=== PATIENT | female | born 1990 | race Caucasian/White ===

== ENCOUNTER 2019-10-01 17:59 | Emergency (ER) | payer BC, SELFPAY ==
--- NOTE | ~2019-10-01 | XR_ITS ---
EXAMINATION: XR ankle RT min 3V, XR foot RT min 3V DATE: 10/01/2019 19:11 INDICATION: Right foot and ankle pain post falling fridge TECHNIQUE: 1. Anteroposterior, mortise, additional oblique and lateral view of the right ankle were obtained. 2. Dorsoplantar, two oblique and lateral views of the right foot were obtained. COMPARISON: Right foot radiographs dated 04/23/2008 FINDINGS: Alignment of the foot and ankle is normal. Asymmetric lateral side predominant shortening of the righ t first proximal phalanx which could be developmental or sequela of old trauma or surgery. No acute f racture or osteochondral lesion. Moderate sized Achilles calcaneal spur and tiny plantar calcaneal sp ur. Joint spaces are well maintained. No ankle joint effusion. The soft tissues are unremarkable. IMPRESSION: 1. No acute osseous abnormality at the right foot or ankle. Reviewed, dictated and finalized at location A. OGY NURSE IMPRESSION: 1. No acute osseous abnormality at the right foot or ankle.
--- NOTE | ~2019-10-01 | XR_ITS ---
EXAMINATION: XR ankle LT min 3V, XR foot LT min 3V DATE: 10/01/2019 19:10 INDICATION: Left foot and ankle pain post falling fridge TECHNIQUE: 1. Anteroposterior, mortise, additional oblique and lateral view of the left ankle were obtained. 2. Dorsoplantar, two oblique and lateral views of the left foot were obtained. COMPARISON: None. FINDINGS: Alignment of the foot and ankle is normal. No fracture or osteochondral lesion. Joint spaces are well maintained. Small Achilles and plantar calcaneal spurs. No ankle joint effusion. The soft tissues ar e unremarkable. IMPRESSION: 1. No acute osseous abnormality the left foot or ankle. Reviewed, dictated and finalized at location A. AL NUTRITIONIST IMPRESSION: 1. No acute osseous abnormality the left foot or ankle.
[2019-10-01 18:18] VITALS: BP 152/101; PULSE 83; RESP 20; TEMP 36.6; O2SAT 99
--- NOTE | 2019-10-01 19:37 | ED.LOWEXIN ---
HPI - Extremity Injury (Lower) General Chief Complaint: Extremity Injury, Lower Stated Complaint: hurt both legs Source: patient Mode of arrival: ambulatory Limitations: no limitations History of Present Illness HPI Narrative: Patient is a 29-year-old female presents with foot and ankle pain bilaterally after she was helping a friend move from the refrigerator that landed on her up bilateral feet and ankles causing pain inflammation that occurred earlier today at around 3:00 a.m. this afternoon, the patient has been taking ibuprofen. There is some minimal swelling with no bruising or contusions. complaint: ankle injury and foot injury Onset (ago): hour(s) Injury: Left: foot and Right: ankle Type of Injury: blunt Severity: mild Severity scale (1-10): 5 Relieving factors: NSAID Exacerbating factors: weight bearing and movement Context: direct blow Associated symptoms: swelling and numbness Other symptoms: none Related Data Home Medications Medication Instructions Recorded Confirmed norgestimate-ethinyl estradiol 1 tablet PO DAILY 07/23/19 07/23/19 [[place]-Linyah] topiramate 50 mg PO HS 07/23/19 07/23/19 Allergies Allergy/AdvReac Type Severity Reaction Status Date / Time codeine Allergy Rash Verified 07/23/19 18:23 hydrocodone [From Vicodin] Allergy Rash Verified 07/23/19 18:24 Review of Systems Review of Systems: All systems reviewed & are unremarkable except as noted in HPI and below PMFSH Past Medical History Medical History Ovarian cyst Seizures Surgical History Surgical History History of tonsillectomy and adenoidectomy Social History Social History Smoking status: Current every day smoker Alcohol intake: current Substance use: never Exam Const: General: no acute distress and alert Nutritional Appearance: well nourished and obese Orientation/consciousness: patient oriented x3 HENMT: Head: normal to inspection Eyes: Conjunctivae: conjunctivae normal Pupils: Equal, round and reactive pupils present Neck: Neck: normal visual inspection Chest: Chest palpation & inspection: normal inspection of the chest Resp: Effort & Inspection: normal respiratory effort Cardio: Rate: regular rate Rhythm: regular rhythm GI: GI Palp: Yes Soft to palpation : General: Yes no CVA tenderness Neuro: General: patient oriented x3 and moves all extremities Extrem: General: normal to inspection Other: Point tenderness bilaterally anterior feet and ankles with no contusions or bruising with minimal swelling. Critical Care Time Critical Care Time Critical Care Time: No Discharge Plan Discharge Clinical Impression: Ankle sprain and strain Foot sprain Qualifiers: Encounter type: initial encounter Laterality: unspecified laterality Qualified Code(s): S93.609A - Unspecified sprain of unspecified foot, initial encounter Patient Disposition: Home, Self-Care Condition: Stable Instructions: Antibiotic Form Additional Instructions: Advised patient to use ice to affected feet and ankles, ibuprofen 600 mg twice daily with meals x1 week, follow-up with primary care physician if symptoms persist or worsen. Prescriptions: No Action amoxicillin-pot clavulanate 875-125 mg tablet 1 tablet PO Q12H Qty: 20 RF: 0 norgestimate-ethinyl estradiol [[place]-Linyah] 0.25-35 mg-mcg tablet 1 tablet PO DAILY RF: 0 topiramate 50 mg tablet 50 mg PO HS RF: 0 Follow-up/Referrals: Angela,MUKESH Falcon [Primary Care Provider] - Time of Disposition: 19:40
[2019-10-01 19:53] VITALS: RESP 20
== END 2019-10-01 19:54 | disposition home or self-care (01) ==
PROVIDERS: Emergency Provider Emergency Medicine; PCP Physician Assistant
DX: S93.402A Sprain of unspecified ligament of left ankle, initial encounter (principal); S93.401A Sprain of unspecified ligament of right ankle, initial encounter
CPT/HCPCS: 73610; 73630; 99282; 99284

== ENCOUNTER 2019-10-19 19:08 | Emergency (ER) | payer BC, SELFPAY ==
[2019-10-19 19:15] VITALS: BP 127/72; PULSE 72; RESP 20; TEMP 36.8; O2SAT 98
--- NOTE | 2019-10-19 19:44 | ED.URI ---
HPI - URI/Sore Throat General Chief Complaint: Upper Respiratory Infection Stated Complaint: throat pain,cough, hard to breath Time Seen by Provider: 10/19/19 19:30 Source: patient Mode of arrival: ambulatory Limitations: no limitations History of Present Illness HPI Narrative: Jil is a 29-year-old female patient. She states that she has been sick for the past couple of days. She has a sore throat cough and congestion. Her chest hurts when she coughs. She has some white sputum production along with the cough. She is afebrile in the ER with a temperature of 98.2? F. no abdominal pain. No vomiting or diarrhea. MD elicited complaint: cough, sore throat and nasal congestion Onset (ago): day(s) ( Two days) Consistency: intermittent Severity: moderate Description of mucous: clear and yellow Able to tolerate fluids by mouth: Yes Exacerbating factors: swallowing Relieving factors: nothing Context: other ( no recent travel. Her nephew had strep throat and flu.) Associated symptoms: cough and other ( No chills or fever) Treatments prior to arrival: acetaminophen Related Data Home Medications Medication Instructions Recorded Confirmed norgestimate-ethinyl estradiol 1 tablet PO DAILY 07/23/19 10/19/19 [[place]-Linyah] topiramate 50 mg PO HS 07/23/19 10/19/19 Allergies Allergy/AdvReac Type Severity Reaction Status Date / Time codeine Allergy Rash Verified 07/23/19 18:23 hydrocodone [From Vicodin] Allergy Rash Verified 07/23/19 18:24 Review of Systems Review of Systems: All systems reviewed & are unremarkable except as noted in HPI and below Constitutional: Constitutional: Reports no additional constitutional complaints, Denies chills and Denies fever(s) Eyes: Eyes: Reports no additional eye complaints and Denies change in vision ENT: Reports system reviewed and no additional complaints, except as documented, Reports nasal congestion and Reports sore throat Cardiovascular: Cardiovascular: Reports no additional cardiovascular complaints, Denies chest pain and Denies radiating jaw, neck or arm pain Respiratory: Respiratory: Reports as per HPI, Reports no additional respiratory complaints and Reports cough Gastrointestinal: Gastrointestinal: Reports as per HPI, Denies abdominal pain, Denies diarrhea, Denies nausea and Denies vomiting Genitourinary: Genitourinary: Reports no additional female genitourinary complaints, Denies hematuria and Denies dysuria Musculoskeletal: Musculoskeletal: Reports no additional musculoskeletal complaints and Denies back pain Integumentary/Breasts: Skin/Breast: Reports system reviewed and no additional complaints, except as docu, Denies erythema and Denies rash Neurologic: Reports system reviewed and no additional complaints, except as documented, Denies dizziness, Denies syncope, Denies headache(s) and Denies focal weakness Psychiatric: Psychiatric: Reports no additional psychiatric complaints PMFSH Past Medical History Medical History Ovarian cyst Seizures Surgical History Surgical History History of tonsillectomy and adenoidectomy Social History Social History Smoking status: Current every day smoker Alcohol intake: current Substance use: never Exam Const: General: no acute distress ( mild distress) and alert; No diaphoretic Orientation/consciousness: patient oriented x3 Limitations: no limitations HENMT: Ears: TM's normal bilaterally and EAC's normal Other: nasal congestion but no discharge. Pharynx is mildly reddened. Eyes: Conjunctivae: conjunctivae normal Pupils: Equal, round and reactive pupils present EOM: EOMs intact bilaterally Neck: Neck: normal visual inspection and no lymphadenopathy Resp: Effort & Inspection: normal respiratory effort Auscultation: rhonchi ( A few rhonchi
[2019-10-19 19:45] LABS: Influenza Control Valid (Valid)
== END 2019-10-19 20:03 | disposition home or self-care (01) ==
PROVIDERS: Emergency Provider Surgery; PCP Physician Assistant
DX: J40 Bronchitis, not specified as acute or chronic (principal); F17.200 Nicotine dependence, unspecified, uncomplicated
CPT/HCPCS: 87081; 87804; 87880; 99283; A9270

== ENCOUNTER 2020-03-03 19:22 | Emergency (ER) | payer BC, SELFPAY ==
--- NOTE | ~2020-03-03 | XR_ITS ---
XR_[id number]_CR 03/03/2020 20:16 Indication: Neck pain Procedure: 5 views of the cervical spine Comparison: No prior studies for comparison. Findings: No fracture, subluxation or dislocation. No prevertebral soft tissue abnormality. Odontoid process within normal limits. Visualized lung parenchyma is unremarkable. Impression: 1: No acute abnormality of the cervical spine. Reviewed, dictated and finalized at location A. Impression: 1: No acute abnormality of the cervical spine.
[2020-03-03 19:40] VITALS: BP 130/96; PULSE 85; RESP 15; TEMP 36.4; O2SAT 98
--- NOTE | 2020-03-03 19:56 | ED.BACK ---
HPI - Back Pain/Injury General Chief Complaint: Back Pain/Injury Stated Complaint: neck,back, shoulder pain Source: patient Mode of arrival: ambulatory Limitations: no limitations History of Present Illness HPI Narrative: this is a 29-year-old female that presents with some neck pain that started earlier this morning there was no known injury, there is limited range of motion secondary to pain and tenderness in the left posterior cervical area with palpation with no fever chills no nausea vomiting currently no headaches no blurry vision. MD elicited complaint: other ( Neck pain) Onset (ago): hour(s) Severity: moderate Pain scale (0-10): 9 Similar Symptoms Previously: Yes Quality: sharp and dull Exacerbating factors: movement Relieving factors: immobilization Context: turning/twisting Related Data Home Medications Medication Instructions Recorded Confirmed norgestimate-ethinyl estradiol 1 tablet PO DAILY 07/23/19 03/03/20 [[place]-Linyah] topiramate 50 mg PO HS 07/23/19 03/03/20 Allergies Allergy/AdvReac Type Severity Reaction Status Date / Time codeine Allergy Rash Verified 07/23/19 18:23 hydrocodone [From Vicodin] Allergy Rash Verified 07/23/19 18:24 Review of Systems Review of Systems: All systems reviewed & are unremarkable except as noted in HPI and below PMFSH Past Medical History Medical History Ovarian cyst Seizures Surgical History Surgical History History of tonsillectomy and adenoidectomy Social History Social History Smoking status: Current every day smoker Alcohol intake: current Substance use: never Exam Const: General: no acute distress and alert Orientation/consciousness: patient oriented x3 HENMT: Head: normal to inspection Eyes: Conjunctivae: conjunctivae normal Pupils: Equal, round and reactive pupils present EOM: EOMs intact bilaterally Neck: Neck: normal visual inspection, no lymphadenopathy and no meningeal signs Chest: Chest palpation & inspection: normal inspection of the chest Resp: Effort & Inspection: normal respiratory effort Auscultation: clear to auscultation bilaterally Cardio: Rate: regular rate Rhythm: regular rhythm GI: Auscultation: normal bowel sounds : General: Yes no CVA tenderness Skin: General skin exam: normal color Rashes: no rashes Extrem: Other: neck pain left posterior neck with palpation and reduced range of motion secondary to pain, there is no numbness or tingling no radiation into her shoulders arms or fingers Psych: Appearance: grossly normal Mental Status: mental status grossly normal Affect: normal affect Course Course Emergency Course: reassessment of patient after she received Toradol does state that her pain is mildly improved, advised to use pain medicine as prescribed and warm compress and a follow-up with primary care physician if symptoms persist. Vital Signs Vital signs: Vital Signs Temperature 36.4 C L 03/03/20 19:40 Pulse Rate 85 03/03/20 19:40 Respiratory Rate 15 03/03/20 19:40 Blood Pressure 130/96 H 03/03/20 19:40 Pulse Oximetry 98 03/03/20 19:40 Temperature 36.4 C L 03/03/20 19:40 Pulse Rate 85 03/03/20 19:40 Respiratory Rate 15 03/03/20 19:40 Blood Pressure 130/96 H 03/03/20 19:40 Pulse Oximetry 98 03/03/20 19:40 Critical Care Time Critical Care Time Critical Care Time: No Discharge Plan Discharge Clinical Impression: Cervical strain Qualifiers: Encounter type: initial encounter Qualified Code(s): S16.1XXA - Strain of muscle, fascia and tendon at neck level, initial encounter Patient Disposition: Home, Self-Care Condition: Stable Instructions: Antibiotic Form, Cervical Strain (DC) Additional Instructions: take medicine as prescribed and follow-up primary care physician if symptom
[2020-03-03] MEDS: KETOROLAC (*BKC) 60 MG/2 ML VIAL IM (20:10)
[2020-03-03 20:31] VITALS: RESP 16; O2SAT 100
== END 2020-03-03 20:33 | disposition home or self-care (01) ==
PROVIDERS: Emergency Provider Emergency Medicine; PCP Physician Assistant
DX: S16.1XXA Strain of muscle, fascia and tendon at neck level, initial encounter (principal)
CPT/HCPCS: 72040; 96372; 99283; J1885

== ENCOUNTER 2020-04-15 19:00 | Emergency (ER) | payer BC, SELFPAY ==
--- NOTE | 2020-04-15 19:24 | ED.ALLEREA ---
HPI - Allergic Reaction General Chief complaint: Skin/Abscess/Foreign Body Stated complaint: 29 yo female w/ 3-4 day h.o left leg rash associated with hives, itching after a insect sting. Here for eval. Related Data Home Medications Medication Instructions Recorded Confirmed norgestimate-ethinyl estradiol 1 tablet PO DAILY 07/23/19 03/03/20 [[place]-Linyah] topiramate 50 mg PO HS 07/23/19 03/03/20 Allergies Allergy/AdvReac Type Severity Reaction Status Date / Time codeine Allergy Rash Verified 07/23/19 18:23 hydrocodone [From Vicodin] Allergy Rash Verified 07/23/19 18:24 Review of Systems Review of Systems: All systems reviewed & are unremarkable except as noted in HPI and below Constitutional: Constitutional: Reports as per HPI, Denies chills, Denies fatigue, Denies fever(s) and Denies weakness ENT: Reports system reviewed and no additional complaints, except as documented Cardiovascular: Cardiovascular: Reports as per HPI and Reports no additional cardiovascular complaints Respiratory: Respiratory: Reports as per HPI and Reports no additional respiratory complaints Gastrointestinal: Gastrointestinal: Reports no additional gastrointestinal complaints Genitourinary: Genitourinary: Reports no additional female genitourinary complaints Musculoskeletal: Musculoskeletal: Reports no additional musculoskeletal complaints Integumentary/Breasts: Skin/Breast: Reports pruritus and Reports rash (left leg rash) Neurologic: Reports system reviewed and no additional complaints, except as documented Psychiatric: Psychiatric: Reports no additional psychiatric complaints [facility], [facility] Past Medical History Medical History Ovarian cyst Seizures Surgical History Surgical History History of tonsillectomy and adenoidectomy Social History Social History Smoking status: Current every day smoker Alcohol intake: current Substance use: never Exam Const: General: no acute distress Orientation/consciousness: patient oriented x3 HENMT: Head: normal to inspection Chest: Chest palpation & inspection: normal inspection of the chest Resp: Effort & Inspection: normal respiratory effort Auscultation: clear to auscultation bilaterally Cardio: Rate: regular rate Rhythm: regular rhythm Skin: Other: Left leg hives w/ excoriations and mild erythema. Negative homans sign b/l LE. Neuro: General: patient oriented x3, moves all extremities and no focal motor deficits Psych: Affect: normal affect Attitude: cooperative MDM - Allergic Reaction MDM Narrative Medical decision making narrative: Home on Topical steroids Differential Diagnosis Differential diagnosis: Likely allergic reaction, contact dermatitis and urticaria; Unlikely anaphylaxis and angioedema Medical Records Attestation: I reviewed the patient's medical records. Critical Care Time Critical Care Time Critical Care Time: No Discharge Plan Discharge Clinical Impression: Insect bites Qualifiers: Encounter type: initial encounter Site of insect bite: lower leg Laterality: left Qualified Code(s): S80.862A - Insect bite (nonvenomous), left lower leg, initial encounter Contact dermatitis Qualifiers: Contact dermatitis type: allergic Contact dermatitis trigger: unspecified trigger Qualified Code(s): L23.9 - Allergic contact dermatitis, unspecified cause Patient Disposition: Home, Self-Care Condition: Stable Instructions: Antibiotic Form, Contact Dermatitis (ED), Insect Bite or Sting (ED) Additional Instructions: F/U with PMD in 3-5 days Prescriptions: New mometasone 0.1 % ointment 1 applic TOPICAL DAILY 7 Days Qty: 50 RF: 0 No Action norgestimate-ethinyl estradiol [[place]-Linyah] 0.25-35 mg-mcg tablet 1 tablet PO DAILY RF: 0 topiramate 50 mg tablet 50 mg PO HS RF
[2020-04-15 19:30] VITALS: BP 155/99; PULSE 85; RESP 18; TEMP 36.6; O2SAT 98
== END 2020-04-15 19:37 | disposition home or self-care (01) ==
PROVIDERS: Emergency Provider Family Medicine; PCP Physician Assistant
DX: S80.862A Insect bite (nonvenomous), left lower leg, initial encounter (principal); L23.9 Allergic contact dermatitis, unspecified cause
CPT/HCPCS: 99283

== ENCOUNTER 2020-07-13 14:10 | Outpatient (CLI) | payer BC, SELFPAY ==
[2020-07-14 14:04] LABS: SARS-CoV-2 RNA PCR Negative
== END 2020-07-13 14:11 | disposition home or self-care (01) ==
LOC: CHSLAB 14:15
PROVIDERS: PCP Physician Assistant; Visit Provider Physician Assistant
DX: Z20.828 Contact with and (suspected) exposure to other viral communicable diseases (principal)
CPT/HCPCS: 87635; C9803; U0003

== ENCOUNTER 2020-11-14 04:54 | Emergency (ER) | payer BC, SELFPAY ==
--- NOTE | ~2020-11-14 | XR_ITS ---
XR wrist LT 2V 11/14/2020 06:02 INDICATION: Left wrist pain after fall PROCEDURE: 3 views left wrist COMPARISON: No prior studies for comparison. FINDINGS: Fracture, dislocation or subluxation is not identified. The soft tissues appear within norm al limits. No foreign bodies are identified. IMPRESSION: 1: NO ACUTE BONE OR JOINT ABNORMALITY IDENTIFIED. Reviewed, dictated and finalized at location A.
--- NOTE | ~2020-11-14 | XR_ITS ---
XR knee RT 2V 11/14/2020 06:02 INDICATION: Right ankle the PROCEDURE: 4 views right knee COMPARISON: No prior studies for comparison. FINDINGS: Fracture, dislocation or subluxation is not identified. Healed proximal tibial and fibular fractures. No significant joint effusion. The soft tissues appear within normal limits. No foreign b odies are identified. IMPRESSION: 1: NO ACUTE BONE OR JOINT ABNORMALITY IDENTIFIED. Reviewed, dictated and finalized at location A.
[2020-11-14 05:19] VITALS: BP 143/91; PULSE 82; RESP 16; TEMP 36.6; O2SAT 98
--- NOTE | 2020-11-14 05:29 | PC.NURSE ---
0518-Ice pack applied to left wrist and right knee.
--- NOTE | 2020-11-14 05:34 | PC.NURSE ---
[place] pt took motrin 600mg
--- NOTE | 2020-11-14 06:08 | PC.NURSE ---
0608- Patient is resting with pillow under right knee.
--- NOTE | 2020-11-14 06:20 | ED.FALL ---
HPI - Fall General Chief Complaint: Fall Stated Complaint: Fall Source: patient and RN notes reviewed Mode of arrival: ambulatory Limitations: no limitations History of Present Illness HPI Narrative: Patient was walking her dog when the dog saw a cat and took off running. The large dog jerked on the leash and patient fell onto the gravel. She complains of pain in left wrist and right knee. She has some abrasion present on the right knee. complaint: fall Onset (ago): minute(s) (20) Fall from: standing Fall witnessed: no Place fall occurred: street Loss of consciousness: none Prolonged down time: no Symptoms prior to fall: none Context: tripped/slipped Location of injury - extremities: Right: knee and Bilateral: hand (left wrist) Severity: moderate Quality: dull and aching Associated symptoms (after fall): denies Related Data Home Medications Medication Instructions Recorded Confirmed topiramate 50 mg PO HS 07/23/19 11/14/20 Allergies Allergy/AdvReac Type Severity Reaction Status Date / Time codeine Allergy Rash Verified 07/23/19 18:23 hydrocodone [From Vicodin] Allergy Rash Verified 07/23/19 18:24 Review of Systems Review of Systems: All systems reviewed & are unremarkable except as noted in HPI and below PMFSH Past Medical History Medical History (Updated 11/14/20 @ 06:24 by Nicho Ponce MD) Ovarian cyst Seizures Surgical History Surgical History History of tonsillectomy and adenoidectomy Social History Social History Smoking status: Current every day smoker Alcohol intake: current Substance use: never Exam Const: General: healthy appearing and no acute distress Nutritional Appearance: well nourished and obese morbidly obese Orientation/consciousness: patient oriented x3 HENMT: Head: normal to inspection Ears: external ears normal Eyes: Conjunctivae: conjunctivae normal Pupils: Equal, round and reactive pupils present EOM: EOMs intact bilaterally Neck: Neck: normal visual inspection Resp: Effort & Inspection: normal respiratory effort Auscultation: clear to auscultation bilaterally Cardio: Rate: regular rate Rhythm: regular rhythm GI: GI Palp: Yes Soft to palpation and No Tenderness to palpation present (GI) Auscultation: normal bowel sounds Back/Spine/Pelvis: Cervical Spine: cervical ROM normal Thoracic/Lumbar Spine: thoraco-lumbar ROM normal Skin: General skin exam: normal color Rashes: no rashes Wounds: wounds noted Neuro: General: patient oriented x3, moves all extremities and no focal motor deficits Speech: normal speech Gait exam (Neuro): Normal gait present ( mild limp on the right) Extrem: General: normal exam except as noted Left upper extremity: wrist tenderness of the distal radius and of the distal ulna and hand tenderness of the palm ( proximal) Right lower extremity: knee Details: tenderness ( minor abrasions on the infrapatellar area.) Location: of the tibial tuberosity, of the medial joint line, of the lateral joint line and of the infrapatellar area Psych: Appearance: grossly normal and well kempt Mental Status: mental status grossly normal Affect: normal affect Attitude: cooperative Thought content: Yes Normal thought content present Course Vital Signs Vital signs: Vital Signs Temperature 36.6 C 11/14/20 05:19 Pulse Rate 82 11/14/20 05:19 Respiratory Rate 16 11/14/20 05:19 Blood Pressure 143/91 H 11/14/20 05:19 Pulse Oximetry 98 11/14/20 05:19 Temperature 36.6 C 11/14/20 05:19 Pulse Rate 82 11/14/20 05:19 Respiratory Rate 16 11/14/20 05:19 Blood Pressure 143/91 H 11/14/20 05:19 Pulse Oximetry 98 11/14/20 05:19 MDM - Fall Imaging Data Radiologist's impression: X-ray of the right knee and left wrist oral negative Discharge Plan Discharge Clinical Impression: Contusion of right knee,
--- NOTE | 2020-11-14 06:21 | PC.NURSE ---
0621-Applied neosporin to right and left knee, and covered with large bandaid.
[2020-11-14] MEDS: NEOMYCIN/POLYMYXIN/BACITRACIN OINTMENT PACKET 1 PACKET TOPICAL (06:24)
[2020-11-14 06:26] VITALS: BP 146/87; PULSE 84; RESP 20; TEMP 36.6; O2SAT 97
== END 2020-11-14 06:30 | disposition home or self-care (01) ==
PROVIDERS: Emergency Provider Emergency Medicine; PCP Physician Assistant
DX: S80.01XA Contusion of right knee, initial encounter (principal); W19.XXXA Unspecified fall, initial encounter
CPT/HCPCS: 73100; 73560; 99282; 99284

== ENCOUNTER 2021-04-19 20:08 | Emergency (ER) | payer BC, SELFPAY ==
[2021-04-19 20:30] VITALS: BP 132/89; PULSE 89; RESP 20; TEMP 37; O2SAT 99
--- NOTE | 2021-04-19 20:57 | ED.ALLEREA ---
HPI - Allergic Reaction General Chief complaint: Skin/Abscess/Foreign Body Stated complaint: bug bite Source: patient Mode of arrival: ambulatory Limitations: no limitations History of Present Illness HPI narrative: Pt came to ed bc she noted that her three middle toes on her right foot were swollen and tender. SHe used hydrocortisone cream, and topical benadryl but it didnt help. She has no fevers chills, and no known injury. Onset (ago): day(s) (today) Exposure: unknown Symptoms: rash and itching Severity: mild Treatment prior to arrival: benadryl and topical medicine Previous Allergic Reaction History: none Related Data Home Medications Medication Instructions Recorded Confirmed topiramate 50 mg PO HS 07/23/19 04/19/21 Allergies Allergy/AdvReac Type Severity Reaction Status Date / Time codeine Allergy Rash Verified 07/23/19 18:23 hydrocodone [From Vicodin] Allergy Rash Verified 07/23/19 18:24 Review of Systems Constitutional: Constitutional: Reports no additional constitutional complaints Eyes: Eyes: Reports no additional eye complaints ENT: Reports system reviewed and no additional complaints, except as documented Cardiovascular: Cardiovascular: Reports no additional cardiovascular complaints Respiratory: Respiratory: Reports no additional respiratory complaints Gastrointestinal: Gastrointestinal: Reports no additional gastrointestinal complaints Genitourinary: Genitourinary: Reports no additional female genitourinary complaints Musculoskeletal: Musculoskeletal: Reports no additional musculoskeletal complaints Integumentary/Breasts: Skin/Breast: Reports system reviewed and no additional complaints, except as docu Neurologic: Reports system reviewed and no additional complaints, except as documented Psychiatric: Psychiatric: Reports no additional psychiatric complaints Endocrine: Endocrine: Reports no additional endocrine complaints Hematologic/Lymphatic: Hematologic/Lymphatic: Reports no additional hematologic/lymphatic complaints Allergic/Immunologic: Allergic/Immunologic: Reports no additional allergic/immunologic complaints [facility] Past Medical History Medical History (Updated 04/19/21 @ 21:04 by Krystyna Waite MD) Ovarian cyst Seizures Surgical History Surgical History History of tonsillectomy and adenoidectomy Social History Social History Smoking status: Current every day smoker Alcohol intake: current Substance use: never Exam Const: General: no acute distress and alert Nutritional Appearance: well nourished Orientation/consciousness: patient oriented x3 HENMT: Head: normal to inspection Neck: Neck: normal visual inspection Resp: Effort & Inspection: normal respiratory effort Auscultation: clear to auscultation bilaterally Cardio: Rate: regular rate Rhythm: regular rhythm GI: GI Palp: Yes Soft to palpation, No Tenderness to palpation present (GI) and No Guarding due to palpation present (GI) Auscultation: normal bowel sounds Skin: General skin exam: normal color Other: middle three toes on r foot were slightly swollen with light red discoloration. toes were tender to touch as well. redness is mild and blanchable. It appears to be allergic type response Neuro: General: patient oriented x3 Extrem: General: normal to inspection Psych: Appearance: grossly normal Affect: normal affect Thought content: Yes Normal thought content present Course Vital Signs Vital signs: Vital Signs Temperature 37.0 C 04/19/21 20:30 Pulse Rate 89 04/19/21 20:30 Respiratory Rate 20 04/19/21 20:30 Blood Pressure 132/89 04/19/21 20:30 Pulse Oximetry 99 04/19/21 20:30 Temperature 37.0 C 04/19/21 20:30 Pulse Rate 89 04/19/21 20:30 Respiratory Rate 20 04/19/21 20:30 Blood Pressure 132/89 04/19/21 20:30 Pulse Oximetry
[2021-04-19] MEDS: DEXAMETHASONE SOD PHOS INJ 4 MG/ML VIAL 10 MG IM (21:08)
[2021-04-19 21:22] VITALS: BP 124/93; PULSE 72; RESP 18; TEMP 36.6; O2SAT 97
== END 2021-04-19 21:25 | disposition home or self-care (01) ==
PROVIDERS: Emergency Provider Emergency Medicine; PCP Physician Assistant
DX: T78.40XA Allergy, unspecified, initial encounter (principal)
CPT/HCPCS: 96372; 99283; J1100

== ENCOUNTER 2021-04-23 12:06 | Emergency (ER) | payer BC, SELFPAY ==
--- NOTE | ~2021-04-23 | CT_ITS ---
EXAMINATION: CT brain wo con DATE: 04/23/2021 13:02 INDICATION: Headache and nausea TECHNIQUE: Computed tomography (CT) of the head was performed without intravenous contrast. Sagittal and coronal reconstructions were performed. The mA was adjusted according to patient size. Iterative reconstruction technique was employed. The dose-length product was 605.33 mGy-cm. COMPARISON: head CT dated 03/27/2017 FINDINGS: Decrease in size of a now approximately 3 mm more subtle density at the left temporal lobe with the i nterval stability favoring small amount of dystrophic calcification. No acute intracranial hemorrhage , acute infarction or abnormal extra axial fluid collection. Ventricles are normal and symmetric. Bas al cisterns are patent. No mass/mass effect. Mucosal thickening in the left maxillary and sphenoid si nuses. The orbits and mastoid air cells are normal. IMPRESSION: 1. No acute intracranial process. 2. Slight decrease in size of a small focus of increased attenuation at the left temporal lobe which given the 2 years of stability favors a benign etiology, most likely dystrophic calcification. Reviewed, dictated and finalized at location A. IMPRESSION: 1. No acute intracranial process. 2. Slight decrease in size of a small focus of increased attenuation at the lef t temporal lobe which given the 2 years of stability favors a benign etiology, most likely dystrophic calcification.
[2021-04-23 12:20] VITALS: BP 128/83; PULSE 75; RESP 20; TEMP 36.4; O2SAT 95
--- NOTE | 2021-04-23 12:39 | ED.HA ---
HPI - Headache General Chief Complaint: Skin/Abscess/Foreign Body Stated Complaint: right leg pain Time Seen by Provider: 04/23/21 12:40 Source: patient Mode of arrival: ambulatory Limitations: no limitations History of Present Illness HPI Narrative: 30-year-old woman comes in today complaining of right lower leg pain that started 2 days ago she states that she was stung on the posterior lower right leg by a wasp which got stuck to her and she had to pull off. She states she has been taking Benadryl and ibuprofen but the pain is increasing and is worse at the lowest 3rd between her ankle and knee. She states the pain radiates up to her posterior knee and is worse with ambulation. Patient states that she woke this morning with a severe headache and nausea that is different than her typical migraine. She has had no recent head injury. She denies fever, cough or cold symptoms, shortness of breath, cough, vomiting, diarrhea, abdominal pain, dysuria, and sick exposures. She states she takes at anticonvulsive medication every day for seizures she had in the past. MD elicited complaint: headache Pertinent past history: migraines Onset (ago): hour(s) Onset description: on awakening Location: diffuse Severity: severe Exacerbating factors: none Relieving factors: nothing Associated symptoms: nausea Treatments prior to arrival: none Related Data Home Medications Medication Instructions Recorded Confirmed topiramate 50 mg PO HS 07/23/19 04/23/21 Allergies Allergy/AdvReac Type Severity Reaction Status Date / Time codeine Allergy Rash Verified 07/23/19 18:23 hydrocodone [From Vicodin] Allergy Rash Verified 07/23/19 18:24 Review of Systems Review of Systems: All systems reviewed & are unremarkable except as noted in HPI and below Constitutional: Constitutional: Denies chills and Denies fever(s) Eyes: Eyes: Denies change in vision and Denies photophobia ENT: Denies dysphagia, Denies nasal congestion and Denies sore throat Cardiovascular: Cardiovascular: Denies chest pain and Denies radiating jaw, neck or arm pain Respiratory: Respiratory: Denies cough and Denies dyspnea Gastrointestinal: Gastrointestinal: Denies abdominal pain, Reports nausea and Denies vomiting Genitourinary: Genitourinary: Denies nocturia and Denies dysuria Musculoskeletal: Musculoskeletal: Denies back pain, Denies arthralgias and Denies joint swelling Integumentary/Breasts: Skin/Breast: Denies pruritus, Denies erythema and Denies rash Comments: Wound on the lower part of her leg. Neurologic: Denies vertigo, Denies dizziness and Denies syncope Endocrine: Endocrine: Denies polydipsia and Denies polyuria Hematologic/Lymphatic: Hematologic/Lymphatic: Denies easy bleeding and Denies easy bruising Allergic/Immunologic: Allergic/Immunologic: Denies lip swelling and Denies throat swelling PMFSH Past Medical History Medical History (Updated 04/23/21 @ 13:20 by Frank Gordon MD) Ovarian cyst Seizures Surgical History Surgical History History of tonsillectomy and adenoidectomy Social History Social History Smoking status: Current every day smoker Alcohol intake: current Substance use: never Exam Const: General: healthy appearing and alert Orientation/consciousness: patient oriented x3 Limitations: no limitations Other: Moderate acute distress HENMT: Head: normal to inspection Face and sinus: normal facial exam Mouth: Yes moist mucous membranes abnormal Throat: posterior oropharynx normal Eyes: Conjunctivae: conjunctivae normal Pupils: Equal, round and reactive pupils present EOM: EOMs intact bilaterally Resp: Effort & Inspection: normal respiratory effort and not tachypneic Auscultation: clear to auscultation bilaterally, no rales, no rhonchi and no wheezes Cardio: Rate: regular rate Rhythm: regular r
[2021-04-23 13:12] LABS: Add Urine Microscopic? NO; Appearance Urine Clear (Clear); Bilirubin Urine Negative (Negative); Blood Urine Negative (Negative); Color Urine Light Yellow (Yellow); Glucose Urine UA Negative (Negative); Ketones Urine Negative (Negative); Leukocyte Esterase Ur Negative (Negative); Nitrate Urine Negative (Negative); Protein Urine Negative (Negative); Urobilinogen Urine 0.2 mg/dL (0.2-1.0); pH Urine 7.5 (5.0-8.0)
[2021-04-23 13:14] LABS: Pregnancy On Board Control Positive; Urine Pregnancy Test Negative
[2021-04-23 13:25] VITALS: BP 128/87; PULSE 78; RESP 20; TEMP 36.4; O2SAT 98
== END 2021-04-23 13:29 | disposition home or self-care (01) ==
PROVIDERS: Emergency Provider Emergency Medicine; PCP Physician Assistant
DX: R51.9 Headache, unspecified (principal); M79.661 Pain in right lower leg
CPT/HCPCS: 70450; 81003; 81025; 99283; 99284

== ENCOUNTER 2021-08-31 11:41 | Emergency (ER) | payer BC, SELFPAY ==
[2021-08-31 12:04] VITALS: BP 142/96; PULSE 80; RESP 16; TEMP 36.3; O2SAT 96
[2021-08-31] MEDS: SODIUM CHLORIDE 0.9% IV 1,000 ML 999 ML IV CONT (12:24)
[2021-08-31] MEDS: ONDANSETRON INJ 4 MG/2 ML VIAL IV PUSH (12:24)
[2021-08-31 12:35] LABS: Alanine Aminotransferase 64 U/L (14-59); Albumin Level 3.6 g/dL (3.4-5.0); Alkaline Phosphatase 91 U/L (46-116); Anion Gap 14 mmol/L (8-16); Aspartate Amino Transferase 25 U/L (15-37); Bilirubin,Total 0.2 mg/dL (0.00-1.00); Blood Urea Nitrogen 9 mg/dL (7-18); Carbon Dioxide 21 mmol/L (21-32); Chloride 107 mmol/L (98-108); Estimated CRCL calculation 92 ml/min; Estimated Glomerular Filt Rate > 60; Glucose 100 mg/dL (70-99); Osmolality Calculated 292 mOsm/kg (285-295); Potassium 3.7 mmol/L (3.5-5.1); Sodium 142 mmol/L (136-145); Total Protein 7.4 g/dL (6.4-8.2)
--- NOTE | 2021-08-31 12:58 | ED.NAVMDI ---
HPI - Nausea/Vomiting/Diarrhea General Chief complaint: Nausea/Vomiting/Diarrhea Stated complaint: not feeling well covid symtoms Source: patient Mode of arrival: ambulatory Limitations: no limitations History of Present Illness HPI Narrative: this is a 31-year-old female with a history of migraines presents today with some episodes of nausea and vomiting 5 episodes after last couple of days, with diarrhea crampy abdominal pain with no chest pain no shortness of breath no fever chills. MD elicited complaint: nausea, vomiting, diarrhea and abdominal pain Description of vomiting: watery Description of diarrhea: semi-solid Associated abdominal pain: Yes Location of pain: diffuse Pain consistency: intermittent Severity: mild Related Data Home Medications Medication Instructions Recorded Confirmed topiramate 50 mg PO HS 07/23/19 08/31/21 Allergies Allergy/AdvReac Type Severity Reaction Status Date / Time codeine Allergy Rash Verified 08/31/21 12:02 hydrocodone [From Vicodin] Allergy Rash Verified 08/31/21 12:02 Review of Systems Review of Systems: All systems reviewed & are unremarkable except as noted in HPI and below PMFSH Past Medical History Medical History (Updated 08/31/21 @ 13:02 by Venancio Gonzales MD) Ovarian cyst Seizures Surgical History Surgical History History of tonsillectomy and adenoidectomy Social History Social History Smoking status: Current every day smoker Alcohol intake: current Substance use: never Exam Const: General: cooperative and no acute distress HENMT: Head: normal to inspection Ears: hearing grossly normal bilaterally General nose exam: Normal external nose present Face and sinus: normal facial exam Mouth: Yes Normal oral and palatal mucosa present and Yes lip normal Throat: posterior oropharynx normal Eyes: General: appearance normal, both eyes and all related structures Neck: Neck: normal visual inspection, full ROM, no lymphadenopathy and no meningeal signs Chest: Chest palpation & inspection: normal inspection of the chest and normal palpation of entire chest wall Resp: Effort & Inspection: normal respiratory effort Auscultation: clear to auscultation bilaterally Cardio: Palpation: normal PMI Rate: regular rate Rhythm: regular rhythm GI: Inspection: normal to inspection Percussion: Yes normal to percussion, Yes dullness to percussion, Yes Fluid wave present, Yes tympanic to percussion and Yes other Auscultation: normal bowel sounds Back/Spine/Pelvis: Back: no CVA tenderness Skin: General skin exam: normal color and no rashes or lesions noted Neuro: General: oriented to person, oriented to place, oriented to time, patient oriented x3 and gait normal Extrem: General: normal to inspection, full ROM and capillary refill normal Psych: Appearance: grossly normal and well kempt Mental Status: mental status grossly normal Course Course Emergency Course: Patient's symptoms have improved with IV fluids and IV Zofran, reviewed lab findings and advised patient to take medicine as prescribed drink fluids as tolerated and follow-up with her primary care physician within a week If symptoms persist or worsen Vital Signs Vital signs: Vital Signs Temperature 36.3 C L 08/31/21 12:04 Pulse Rate 80 08/31/21 12:04 Respiratory Rate 16 08/31/21 12:04 Blood Pressure 142/96 H 08/31/21 12:04 Pulse Oximetry 96 08/31/21 12:04 Temperature 36.3 C L 08/31/21 12:04 Pulse Rate 80 08/31/21 12:04 Respiratory Rate 16 08/31/21 12:04 Blood Pressure 142/96 H 08/31/21 12:04 Pulse Oximetry 96 08/31/21 12:04 MDM - Nausea/Vomiting/Diarrhea Lab Data Result diagrams: 08/31/21 11:57 Labs: Lab Results 08/31/21 Range/Units 11:57 Sodium 142 (136-145) mmol/L Potassium 3.7 (3.5-5.1) mmol/L Chloride 1
[2021-08-31 13:25] VITALS: BP 112/73; PULSE 63; RESP 16; O2SAT 100
== END 2021-08-31 13:27 | disposition home or self-care (01) ==
PROVIDERS: Emergency Provider Emergency Medicine; PCP Physician Assistant
DX: K52.9 Noninfective gastroenteritis and colitis, unspecified (principal)
CPT/HCPCS: 36415; 80053; 96361; 96374; 99283; 99284; J2405; J7030

== ENCOUNTER 2021-08-31 16:30 | Outpatient (CLI) | payer BC, SELFPAY ==
[2021-08-31 18:14] LABS: SARS-CoV-2 Ag Negative (Negative)
== END 2021-08-31 16:31 | disposition home or self-care (01) ==
LOC: CHSLAB 16:35
PROVIDERS: PCP Physician Assistant; Visit Provider Physician Assistant
DX: B34.9 Viral infection, unspecified (principal); Z20.822 Contact with and (suspected) exposure to COVID-19
CPT/HCPCS: 87426; C9803

== ENCOUNTER 2021-11-01 14:12 | Outpatient (CLI) | payer BC, SELFPAY ==
[2021-11-01 16:23] LABS: SARS-CoV-2 RNA PCR Negative (Negative)
== END 2021-11-01 14:13 | disposition home or self-care (01) ==
LOC: CHSLAB 14:14
PROVIDERS: PCP Physician Assistant; Visit Provider Physician Assistant
DX: B34.9 Viral infection, unspecified (principal); Z20.822 Contact with and (suspected) exposure to COVID-19
CPT/HCPCS: C9803; U0003; U0005

== ENCOUNTER 2021-12-08 19:09 | Emergency (ER) | payer BC, SELFPAY ==
[2021-12-08 19:20] VITALS: BP 151/96; PULSE 81; RESP 16; TEMP 36.2; O2SAT 97
--- NOTE | 2021-12-08 19:20 | ED.SKABFB ---
HPI - Skin/Abscess/Foreign Bdy General Chief complaint: Skin/Abscess/Foreign Body Stated complaint: bumps on lt side-hip pain Time Seen by Provider: 12/08/21 19:20 Source: patient and RN notes reviewed Mode of arrival: ambulatory Limitations: no limitations History of Present Illness complaint: rash Onset (ago): day(s) (1) Location: LUE (Left upper anterior hip) Severity: moderate Quality: pruritic Pain Consistency: constant Relieving factors: none Exacerbating factors: none Context: none Associated symptoms: denies other symptoms Treatments prior to arrival: none Related Data Home Medications Medication Instructions Recorded Confirmed topiramate 50 mg PO HS 07/23/19 08/31/21 Allergies Allergy/AdvReac Type Severity Reaction Status Date / Time codeine Allergy Rash Verified 12/08/21 19:25 hydrocodone [From Vicodin] Allergy Rash Verified 12/08/21 19:25 Review of Systems Review of Systems: All systems reviewed & are unremarkable except as noted in HPI and below PMFSH Past Medical History Medical History (Updated 12/08/21 @ 19:34 by Nicho Ponce MD) Ovarian cyst Seizures Surgical History Surgical History History of tonsillectomy and adenoidectomy Social History Social History Smoking status: Current every day smoker Alcohol intake: current Substance use: never Exam Const: General: healthy appearing, no acute distress and alert Nutritional Appearance: well nourished and obese morbidly obese Orientation/consciousness: patient oriented x3 Other: Female nurse in room during examination. HENMT: Head: normal to inspection Ears: external ears normal Eyes: Conjunctivae: conjunctivae normal Pupils: Equal, round and reactive pupils present EOM: EOMs intact bilaterally Neck: Neck: normal visual inspection Resp: Effort & Inspection: normal respiratory effort Cardio: Rate: regular rate Rhythm: regular rhythm GI: Auscultation: normal bowel sounds Back/Spine/Pelvis: Cervical Spine: cervical ROM normal Thoracic/Lumbar Spine: thoraco-lumbar ROM normal Skin: General skin exam: normal color Rashes: rashes noted maculopapular rash left anterior upper leg arrangement clustered, borders sharp and color blanching; fluctuant not assessed and nontender Other: Area on the left anterior upper thigh just below the inguinal canal shows some area of central punctation consistent with insect bites. Localized induration reaction. Does not appear to be scabies, bedbugs, infection. Neuro: General: patient oriented x3, moves all extremities, no focal motor deficits and CN's II-XI intact bilaterally Speech: normal speech Gait exam (Neuro): Normal gait present Extrem: General: normal to inspection and no clubbing, cyanosis or edema Psych: Appearance: grossly normal and well kempt Mental Status: mental status grossly normal Affect: normal affect Attitude: cooperative Thought content: Yes Normal thought content present Discharge Plan Discharge Clinical Impression: Insect bites Qualifiers: Encounter type: initial encounter Site of insect bite: thigh Laterality: left Qualified Code(s): S70.362A - Insect bite (nonvenomous), left thigh, initial encounter Patient Disposition: Home, Self-Care Condition: Stable Instructions: Antibiotic Form, Insect Bite or Sting (ED) Additional Instructions: Use Benadryl orally or the topical Benadryl spray that you have. If the Benadryl makes you too sleepy you can buy Zyrtec [id number] and take 1 twice a day as needed. Follow-up with your primary care physician any worsening symptoms or does not resolve in the next 7-10 days. Prescriptions: No Action topiramate 50 mg tablet 50 mg PO HS RF: 0 Follow-up/Referrals: Angela,MUKESH Falcon [Primary Care Provider] - Time of Disposition: 19:34
--- NOTE | 2021-12-08 19:37 | PC.NURSE ---
exam chaperoned by candy saldana RN
== END 2021-12-08 19:37 | disposition home or self-care (01) ==
PROVIDERS: Emergency Provider Emergency Medicine; PCP Physician Assistant
DX: S70.362A Insect bite (nonvenomous), left thigh, initial encounter (principal)
CPT/HCPCS: 99281

== ENCOUNTER 2022-04-04 02:31 | Emergency (ER) | payer BC, SELFPAY ==
[2022-04-04 02:35] VITALS: BP 150/100; PULSE 84; RESP 20; TEMP 36.1; O2SAT 97
--- NOTE | 2022-04-04 02:37 | ED.EAR ---
HPI - Ear Problem General Chief complaint: Ear Stated complaint: Bug in Ear Time Seen by Provider: 04/04/22 02:37 Source: patient and RN notes reviewed Mode of arrival: ambulatory Limitations: no limitations History of Present Illness Complaint: foreign body (insect) Location: right ear Duration: constant Severity: mild Relieving factors: other (water flushing) Exacerbating factors: nothing Discharge from ear: Reports no Treatment prior to arrival: none and other (Q-Tip in ear trying to remove insect) Related Data Home Medications Medication Instructions Recorded Confirmed topiramate 50 mg tablet 50 mg PO HS 07/23/19 04/04/22 Allergies Allergy/AdvReac Type Severity Reaction Status Date / Time codeine Allergy Rash Verified 12/08/21 19:25 hydrocodone [From Vicodin] Allergy Rash Verified 12/08/21 19:25 Review of Systems Review of Systems: All systems reviewed & are unremarkable except as noted in HPI and below PMFSH Past Medical History Medical History (Updated 04/04/22 @ 03:06 by Nicho Ponce MD) Ovarian cyst Seizures Surgical History Surgical History History of tonsillectomy and adenoidectomy Social History Social History Smoking status: Current every day smoker Alcohol intake: current Substance use: never Exam Const: General: healthy appearing, no acute distress and alert Nutritional Appearance: well nourished and obese morbidly obese Orientation/consciousness: patient oriented x3 Limitations: no limitations HENMT: Head: normal to inspection Ears: TM normal on the left, Abnormal EAC present erythema on the right and edema on the right, TM abnormal obstructed by cerumen on the right ( right) and other ( no insect identified) Eyes: Conjunctivae: conjunctivae normal Pupils: Equal, round and reactive pupils present EOM: EOMs intact bilaterally Neck: Neck: normal visual inspection and no lymphadenopathy Resp: Effort & Inspection: normal respiratory effort Auscultation: clear to auscultation bilaterally Cardio: Rate: regular rate Rhythm: regular rhythm GI: GI Palp: Yes Soft to palpation and No Tenderness to palpation present (GI) Auscultation: normal bowel sounds Back/Spine/Pelvis: Cervical Spine: cervical ROM normal Thoracic/Lumbar Spine: thoraco-lumbar ROM normal Skin: General skin exam: normal color Neuro: General: patient oriented x3, moves all extremities, no focal motor deficits and CN's II-XI intact bilaterally Speech: normal speech Gait exam (Neuro): Normal gait present Extrem: General: normal to inspection and no clubbing, cyanosis or edema Psych: Mental Status: mental status grossly normal Affect: normal affect Attitude: cooperative Course Course Emergency Course: patient's right ear was flushed by the nurse. No foreign body or any other material was observed. Recheck of the ear still shows no evidence of any insect. Since she has been using Q-tips and copious amounts of flushing in her right ear it appears inflamed and edematous am going to put her on some antibiotic ear drops. Vital Signs Vital signs: Vital Signs Temperature 36.1 C L 04/04/22 02:35 Pulse Rate 84 04/04/22 02:35 Respiratory Rate 20 04/04/22 02:35 Blood Pressure 150/100 H 04/04/22 02:35 Pulse Oximetry 97 04/04/22 02:35 Oxygen Delivery Room Air 04/04/22 02:35 Temperature 36.1 C L 04/04/22 02:35 Pulse Rate 87 04/04/22 03:09 Respiratory Rate 20 04/04/22 03:09 Blood Pressure 140/88 04/04/22 03:09 Pulse Oximetry 97 04/04/22 03:09 Oxygen Delivery Room Air 04/04/22 03:09 Medical Decision Making Vital Signs Vital Signs: Vital Signs Temperature 36.1 C L 04/04/22 02:35 Pulse Rate 84 04/04/22 02:35 Respiratory Rate 20 04/04/22 02:35 Blood Pressure 150/100 H 04/04/22 02:35 Pulse Oximetry 97 04/04/22 02:35 Oxygen Delivery Room
[2022-04-04 03:09] VITALS: BP 140/88; PULSE 87; RESP 20; O2SAT 97
== END 2022-04-04 03:15 | disposition home or self-care (01) ==
PROVIDERS: Emergency Provider Emergency Medicine; PCP Physician Assistant
DX: H60.551 Acute reactive otitis externa, right ear (principal)
CPT/HCPCS: 99283

== ENCOUNTER 2022-04-20 21:08 | Emergency (ER) | payer BC, SELFPAY ==
--- NOTE | ~2022-04-20 | XR_ITS ---
EXAMINATION: XR knee RT 3V DATE: 04/20/2022 21:44 INDICATION: Right knee pain and locking up. TECHNIQUE: Anteroposterior, oblique and crosstable lateral views of the right knee were obtained COMPARISON: 11/14/2020 FINDINGS: Alignment is normal. No acute fracture. Unchanged mild outward lateral bulging of the cortex at the p roximal right fibular metadiaphysis which could represent either an old healed fracture or a sessile osteochondroma. Joint spaces appear normal on nonweightbearing imaging. No joint effusion/layering li pohemarthrosis. Soft tissues are unremarkable. IMPRESSION: 1. No joint effusion or acute osseous abnormality. Reviewed, dictated and finalized at location A.
[2022-04-20 21:09] VITALS: BP 149/103; PULSE 97; RESP 18; TEMP 36.2; O2SAT 95
--- NOTE | 2022-04-20 21:19 | ED.LOWEXIN ---
HPI - Extremity Injury (Lower) General Chief Complaint: Extremity Injury, Lower Stated Complaint: R knee pain Time Seen by Provider: 04/20/22 21:13 Source: patient and RN notes reviewed Mode of arrival: ambulatory Limitations: no limitations History of Present Illness HPI Narrative: Patient states that her right knee was cramping up yesterday in the evening just above her knee. Been hurting off and on last evening woke her up from sleep and this morning it hurt. About 30 minutes prior to her arrival she said that the right knee seemed to lock up while she was walking her dog and then she fell onto her right knee. complaint: knee injury Onset (ago): day(s) (1) Injury: Right: knee Type of Injury: unknown Place: home Severity: moderate Relieving factors: nothing Exacerbating factors: weight bearing and movement Context: walking Associated symptoms: able to partially bear weight Other symptoms: none Related Data Home Medications Medication Instructions Recorded Confirmed topiramate 50 mg tablet 50 mg PO HS 07/23/19 04/20/22 Allergies Allergy/AdvReac Type Severity Reaction Status Date / Time codeine Allergy Rash Verified 04/20/22 21:20 hydrocodone [From Vicodin] Allergy Rash Verified 04/20/22 21:20 Review of Systems Review of Systems: All systems reviewed & are unremarkable except as noted in HPI and below PMFSH Past Medical History Medical History (Updated 04/21/22 @ 00:00 by Background Daemon) Ovarian cyst Seizures Surgical History Surgical History History of tonsillectomy and adenoidectomy Social History Social History Smoking status: Current every day smoker Alcohol intake: current Substance use: never Exam Const: General: healthy appearing, no acute distress and alert Nutritional Appearance: well nourished Orientation/consciousness: patient oriented x3 Limitations: no limitations Other: Female nurse in room during examination. HENMT: Head: normal to inspection Ears: external ears normal Eyes: Conjunctivae: conjunctivae normal Pupils: Equal, round and reactive pupils present EOM: EOMs intact bilaterally Neck: Neck: normal visual inspection Resp: Effort & Inspection: normal respiratory effort Auscultation: clear to auscultation bilaterally Cardio: Rate: regular rate Rhythm: regular rhythm GI: GI Palp: Yes Soft to palpation and No Tenderness to palpation present (GI) Auscultation: normal bowel sounds Back/Spine/Pelvis: Cervical Spine: cervical ROM normal Thoracic/Lumbar Spine: thoraco-lumbar ROM normal Skin: General skin exam: normal color Rashes: no rashes Neuro: General: patient oriented x3, moves all extremities, no focal motor deficits and CN's II-XI intact bilaterally Speech: normal speech Extrem: General: normal exam except as noted Right lower extremity: knee Details: tenderness Location: of the medial joint line and of the lateral joint line, swelling Location: of the patella, abnormal ROM Details: pain with active ROM during Details: in extension and in flexion and pain with passive ROM during Details: in extension and in flexion, knee ligament exam normal Details: anterior drawer test normal, valgus stress test normal, varus stress test normal and Arlene?s test normal and Yasemin's Test Details: positive laterally Psych: Mental Status: mental status grossly normal Affect: normal affect Attitude: cooperative Course Vital Signs Vital signs: Vital Signs Temperature 36.2 C L 04/20/22 21:09 Pulse Rate 97 04/20/22 21:09 Respiratory Rate 18 04/20/22 21:09 Blood Pressure 149/103 H 04/20/22 21:09 Pulse Oximetry 95 04/20/22 21:09 Oxygen Delivery Room Air 04/20/22 21:09 Temperature 36.2 C L 04/20/22 21:09 Pulse Rate 68 04/20/22 22:16 Respiratory Rate 18 04/20/22 22:16 Blood Pressure 123/88 04/20/22 22:16 Pulse Oximetr
[2022-04-20] MEDS: KETOROLAC 30 MG/ML VIAL (*BKC) IM (22:01)
[2022-04-20 22:16] VITALS: BP 123/88; PULSE 68; RESP 18; O2SAT 97
== END 2022-04-20 22:18 | disposition home or self-care (01) ==
PROVIDERS: Emergency Provider Emergency Medicine; PCP Physician Assistant
DX: M23.91 Unspecified internal derangement of right knee (principal)
CPT/HCPCS: 73562; 96372; 99284; J1885; L1830

== ENCOUNTER 2023-01-03 18:15 | Emergency (ER) | payer BC, SELFPAY ==
--- NOTE | ~2023-01-03 | CT_ITS ---
EXAMINATION: CT abdomen pelvis wo con DATE: 01/03/2023 19:16 INDICATION: Left flank pain. TECHNIQUE: Computed tomography (CT) of the abdomen and pelvis was performed without intravenous contr ast. Automated exposure control and iterative reconstruction technique were employed. The dose-length product was 1160.71 mGy-cm. COMPARISON: CT abdomen and pelvis 06/08/2019, pelvis ultrasound 06/19/2019 FINDINGS: The visualized portions of the lung bases demonstrate minimal atelectasis. No pleural effus ion. The heart size is normal. No pericardial effusion. There is diffuse hepatic steatosis. The gallb ladder and pancreas are normal. Calcifications in the spleen are consistent with old granulomatous di sease. The adrenal glands and kidneys are normal. There is a 3.2 cm mass in left ovary measuring grea ter than simple fluid in attenuation. There is a chronic 4.9 cm mass posterior to the uterus likely a rising from the left ovary. There are no dilated loops of bowel. The appendix is normal. There are no pathologically enlarged lymph nodes. There is no free intraperitoneal fluid. There is mild thoracolu mbar spondylosis. IMPRESSION: 1. 3.2 cm mass in the left ovary, new from 06/19/19, most likely a hemorrhagic cyst. Pelvis ultrasoun d is recommended. 2. Chronic 4.9 cm mass of the left ovary which may be an endometrioma. 3. No urolithiasis. Reviewed, dictated and finalized at location E. IMPRESSION: 1. 3.2 cm mass in the left ovary, new from 06/19/19, most likely a hemorrhagic cyst. Pelvis ultrasound is recommended. 2. Chronic 4.9 cm mass of the left ovary which may be an endometrioma. 3. No urolithiasis.
[2023-01-03 18:15] VITALS: BP 159/100; PULSE 88; RESP 20; TEMP 36.8; O2SAT 98
[2023-01-03 18:45] LABS: Appearance Urine Clear (Clear); Bilirubin Urine Negative (Negative); Blood Urine Negative (Negative); Color Urine Yellow (Yellow); Glucose Urine UA Negative (Negative); Ketones Urine Negative (Negative); Leukocyte Esterase Ur Negative LEU/UL (Negative); Nitrate Urine Negative (Negative); Protein Urine Negative (Negative); Urobilinogen Urine 0.2 mg/dL (0.2-1.0)
[2023-01-03 18:47] LABS: Add Urine Microscopic? NO
[2023-01-03 18:57] LABS: Hematocrit 42.5 % (35.0-49.0); Hemoglobin 14.1 g/dL (12.0-15.0); Mean Corpuscular HGB Conc 33.2 g/dL (32.0-36.0); Mean Corpuscular Hemoglobin 30.7 pg (27.0-31.0); Mean Corpuscular Volume 92.4 fL (78.0-102.0); Mean Platelet Volume 10.6 fl (9.2-11.8); Platelet Count Result 362 K/mm3 (150-420); Red Cell Distribution Width 13.2 % (11.6-14.4); White Blood Count 17.3 K/mm3 (4.8-10.8)
[2023-01-03 18:58] LABS: Pregnancy On Board Control Positive; Urine Pregnancy Test Negative
[2023-01-03] MEDS: ORPHENADRINE CITRATE 30 MG/ML 2 ML VIAL 60 MG IM (19:00)
[2023-01-03] MEDS: SODIUM CHLORIDE 0.9% IV 1,000 ML 999 ML IV CONT (19:01)
[2023-01-03 19:05] LABS: Band Neutrophils Percent 0 % (0-6); Basophils Percent Manual 0 % (0-1); Eosinophils Absolute Manual 0.86 K/mm3 (0.02-0.5); Eosinophils Percent Manual 5 % (1-6); Lymphocytes Absolute Manual 3.11 K/mm3 (1.1-4.5); Lymphocytes Percent Manual 18 % (18-44); Monocytes Absolute Manual 0.34 K/mm3 (0.1-0.90); Monocytes Percent Manual 2 % (3-9); Neutrophils Absolute Manual 12.97 K/mm3 (1.7-7.2); Neutrophils Percent Manual 75 % (46-73); Platelet Estimate Adequate (Adequate)
[2023-01-03 19:12] LABS: Alanine Aminotransferase 32 U/L (14-59); Albumin Level 3.4 g/dL (3.4-5.0); Alkaline Phosphatase 74 U/L (46-116); Anion Gap 10 mmol/L (8-16); Aspartate Amino Transferase 21 U/L (15-37); Bilirubin,Total 0.2 mg/dL (0.00-1.00); Blood Urea Nitrogen 9 mg/dL (7-18); Calcium 8.5 mg/dL (8.5-10.1); Carbon Dioxide 24 mmol/L (21-32); Chloride 106 mmol/L (98-108); Estimated CRCL calculation 105 ml/min; Estimated Glomerular Filt Rate > 60; Glucose 112 mg/dL (70-99); Osmolality Calculated 289 mOsm/kg (285-295); Potassium 3.5 mmol/L (3.5-5.1); Sodium 140 mmol/L (136-145); Total Protein 7.1 g/dL (6.4-8.2)
[2023-01-03 19:42] VITALS: BP 139/84; PULSE 87; RESP 20; O2SAT 98
--- NOTE | 2023-01-03 19:44 | ED.BACK ---
HPI - Back Pain/Injury General Chief Complaint: Back Pain/Injury Stated Complaint: lower back pain Time Seen by Provider: 01/03/23 18:28 Source: patient Mode of arrival: ambulatory Limitations: no limitations History of Present Illness HPI Narrative: this is a 32-year-old female that presents with left lower back pain started earlier today has issues with chronic low back pain but this more intense radiating down her left leg with no abdominal pain no fever chills no hematuria no dysuria no nausea vomiting no saddle paresthesias. MD elicited complaint: back pain Pertinent past history: prior back pain Onset (ago): hour(s) Timing: constant Severity: moderate Pain scale (0-10): 8 Quality: sharp Location: lumbar spine and left flank Related Data Home Medications Medication Instructions Recorded Confirmed topiramate 50 mg tablet 50 mg PO HS 07/23/19 01/03/23 Allergies Allergy/AdvReac Type Severity Reaction Status Date / Time codeine Allergy Rash Verified 01/03/23 18:23 hydrocodone [From Vicodin] Allergy Rash Verified 01/03/23 18:23 Review of Systems Review of Systems: All systems reviewed & are unremarkable except as noted in HPI and below PMFSH Past Medical History Medical History (Updated 01/03/23 @ 19:52 by Venancio Gonzales MD) Ovarian cyst Seizures Surgical History Surgical History History of tonsillectomy and adenoidectomy Social History Social History Smoking status: Current every day smoker Alcohol intake: current Substance use: never Living arrangements: with family Exam Const: General: healthy appearing Nutritional Appearance: well nourished Orientation/consciousness: patient oriented x3 Limitations: no limitations HENMT: Head: normal to inspection Eyes: Conjunctivae: conjunctivae normal Pupils: Equal, round and reactive pupils present Neck: Neck: normal visual inspection Chest: Chest palpation & inspection: normal inspection of the chest Resp: Effort & Inspection: normal respiratory effort Cardio: Rate: regular rate Rhythm: regular rhythm GI: Auscultation: normal bowel sounds : General: Yes bladder normal to palpation Urinary Catheter: Urinary Catheter: patent and draining Back/Spine/Pelvis: Back: CVA tenderness Skin: General skin exam: normal color Rashes: no rashes Neuro: General: patient oriented x3 and moves all extremities Cranial nerves: Yes Nystagmus not present Speech: normal speech Psych: Mental Status: mental status grossly normal Course Course Emergency Course: Patient received IV fluids, had IV Tylenol and a muscle relaxer administer the patient's pain has improved CT scan reviewed which shows a hemorrhagic cyst ovarian and advised to follow-up with her gynecological assistant are her primary for a pelvic ultrasound, patient has elevated white count and will administer ceftriaxone. Vital Signs Vital signs: Vital Signs Temperature 36.8 C 01/03/23 18:15 Pulse Rate 88 01/03/23 18:15 Respiratory Rate 20 01/03/23 18:15 Blood Pressure 159/100 H 01/03/23 18:15 Pulse Oximetry 98 01/03/23 18:15 Oxygen Delivery Room Air 01/03/23 18:15 Temperature 36.8 C 01/03/23 18:15 Pulse Rate 87 01/03/23 19:42 Respiratory Rate 01/03/23 19:42 Blood Pressure 139/84 01/03/23 19:42 Pulse Oximetry 98 01/03/23 19:42 Oxygen Delivery Room Air 01/03/23 19:42 MDM - Back Pain/Injury Lab Data 01/03/23 18:52 01/03/23 18:52 Labs: Lab Results 01/03/23 01/03/23 01/03/23 Range/Units 18:43 18:52 18:55 WBC 17.3 H (4.8-10.8) K/mm3 RBC 4.60 (4.20-5.40) M/mm3 Hgb 14.1 (12.0-15.0) g/dL Hct 42.5 (35.0-49.0) % MCV 92.4 (78.0-102.0) fL MCH 30.7 (27.0-31.0) pg MCHC 33.2 (32.0-36.0) g/dL RDW 13.2 (11.6-14.4) % Plt Count 362 (150-420) K/mm3 MPV 1
[2023-01-03] MEDS: cefTRIAXone 1 GM, LIDOCAINE HCL 1% LOCAL INJ 2.1 ML IM (19:56)
[2023-01-03 20:03] VITALS: BP 133/85; PULSE 88; RESP 18; TEMP 36.9; O2SAT 98
== END 2023-01-03 20:11 | disposition home or self-care (01) ==
PROVIDERS: Emergency Provider Emergency Medicine; PCP Physician Assistant
DX: M54.30 Sciatica, unspecified side (principal); F17.200 Nicotine dependence, unspecified, uncomplicated
CPT/HCPCS: 36415; 74176; 80053; 81003; 81025; 85025; 96361; 96372; 96374; 99284; J0131; J0696; J2360; J7030

== ENCOUNTER 2023-03-06 08:48 | Outpatient (CLI) | payer BC, SELFPAY ==
--- NOTE | ~2023-03-06 | US_ITS ---
EXAMINATION: US pelvic complete w TV DATE: 03/06/2023 09:27 INDICATION: Left adnexal masses on CT TECHNIQUE: Multiple transabdominal and endovaginal sonographic images of the pelvis were obtained. COMPARISON: 06/19/2019; CT, 01/03/2023 FINDINGS: The uterus measures 8.1 x 4.5 x 3.6 cm. The endometrial complex measures 5 mm. The right ov mayra measures 4.5 x 2.5 x 2.8 cm. The left ovary measures 5.9 x 2.3 x 1.9 cm. There is a chronic 4.5 x 4.5 x 3.3 cm cystic mass of the left adnexa with low-level internal echoes. There is a stable 11 mm peripheral nodular component without associated vascularity. There is a 1.9 cm isoechoic lesion of th e left ovary, likely hemorrhagic cyst There is normal vascular flow in the ovaries. There is no free fluid in the pelvis. IMPRESSION: 1. Stable, chronic cystic lesion of the left adnexa with stable peripheral nodular component, probabl e endometrioma and isoechoic lesion of the left ovary, probable hemorrhagic cyst. Further evaluation by MRI without and with contrast is recommended. Reviewed, dictated and finalized at location B. IMPRESSION: 1. Stable, chronic cystic lesion of the left adnexa with stable peripheral nodu lar component, probable endometrioma and isoechoic lesion of the left ovary, pr obable hemorrhagic cyst. Further evaluation by MRI without and with contrast is recommended.
== END 2023-03-06 08:49 | disposition home or self-care (01) ==
LOC: CHSIMG 08:49
PROVIDERS: PCP Physician Assistant; Visit Provider Obstetrics & Gynecology
DX: R93.41 Abnormal radiologic findings on diagnostic imaging of renal pelvis, ureter, or bladder (principal); N83.8 Other noninflammatory disorders of ovary, fallopian tube and broad ligament
CPT/HCPCS: 76830; 76856

== ENCOUNTER 2023-03-14 09:24 | Outpatient (CLI) | payer BC, SELFPAY ==
[2023-03-17 04:55] LABS: CA-125 6 U/mL (<35)
== END 2023-03-14 09:25 | disposition home or self-care (01) ==
PROVIDERS: Visit Provider Obstetrics & Gynecology
DX: D39.12 Neoplasm of uncertain behavior of left ovary (principal)
CPT/HCPCS: 36415; 86304